=== PATIENT | male | born 1960 | race African-American/Black ===

== ENCOUNTER 2020-04-09 05:19 | Day surgery (SDC) | payer OTHER, SELFPAY ==
[~2020-04-09] VITALS: Ht 182.9 cm; Wt 93.0 kg
[2020-04-09] MEDS ORDERED: MIDAZOLAM 2 MG/2 ML VIAL ONE (07:31)
[2020-04-09] MEDS ORDERED: fentaNYL 0.05 MG/ML VIAL ONE (07:31)
[2020-04-09] MEDS ORDERED: diphenhydrAMINE 50 MG/ML VIAL ONE (07:31)
[2020-04-09] MEDS ORDERED: LIDOCAINE 2% 100 MG/5 ML UJET TP ONE (07:54)
[2020-04-09] MEDS ORDERED: fentaNYL 0.05 MG/ML VIAL IVP ONE (08:25)
[2020-04-09] MEDS ORDERED: MIDAZOLAM 2 MG/2 ML VIAL IVP ONE (08:25)
== END 2020-04-09 08:37 | disposition home or self-care (01) ==
LOC: MDS 05:19 → MMU 05:41 → MDS 08:37
PROVIDERS: ATTEND Internal Medicine Gastroenterology
DX: K62.5 Hemorrhage of anus and rectum (principal); K64.8 Other hemorrhoids; K63.5 Polyp of colon; I10 Essential (primary) hypertension; J45.909 Unspecified asthma, uncomplicated; K59.00 Constipation, unspecified; Z79.02 Long term (current) use of antithrombotics/antiplatelets; Z79.899 Other long term (current) drug therapy
CPT/HCPCS: 45385; J2250; J3010; U0003; J1200

== ENCOUNTER 2021-06-17 10:58 | Day surgery (SDC) | payer OTHER ==
[~2021-06-17] VITALS: Ht 185.4 cm; Wt 142.9 kg
[2021-06-17] MEDS ORDERED: MIDAZOLAM 5 MG/5 ML VIAL ONE (12:56)
[2021-06-17] MEDS ORDERED: fentaNYL citrate 0.05 MG/ML VIAL ONE (12:56)
[2021-06-17] MEDS ORDERED: diphenhydrAMINE 50 MG/ML VIAL ONE (12:56)
[2021-06-17] MEDS ORDERED: LIDOCAINE 2% 100 MG/5 ML UJET TP ONE ×2 (12:56→13:25)
[2021-06-17] MEDS ORDERED: MIDAZOLAM 2 MG/2 ML VIAL IVP ONE (13:25)
[2021-06-17] MEDS ORDERED: fentaNYL citrate 0.05 MG/ML VIAL IVP ONE (13:25)
== END 2021-06-17 13:56 | disposition home or self-care (01) ==
LOC: MDS 10:58 → MMU 12:01 → MDS 13:56
PROVIDERS: ATTEND Internal Medicine Gastroenterology
DX: K59.00 Constipation, unspecified (principal); D12.2 Benign neoplasm of ascending colon; D12.0 Benign neoplasm of cecum; I10 Essential (primary) hypertension; Z79.02 Long term (current) use of antithrombotics/antiplatelets; Z79.899 Other long term (current) drug therapy
CPT/HCPCS: 45380; 45385; 88305; J2250; J3010; J1200